=== PATIENT | male | born 1970 | race African-American/Black ===

== ENCOUNTER 2017-10-24 10:39 | Emergency (ER) | payer SELFPAY ==
[2017-10-24 10:43] VITALS: BP 161/98; BMI 26.9
--- NOTE | 2017-10-24 11:19 | DR.GENAD ---
HPI - PCP Primary Care Physician: NFD - Complaint/Symptoms Chief Complaint Doctors Comments: Five days ago patient states that he was cooking and spilled hot grease onto himself sustaining burn to the left neck, anterior lateral upper chest wall and shoulder to include the arm and forearm. Today he decided to get it checked. He does have weeping blisters noted as well as denuded blister formation Chief Complaint:: PATIENT WAS TAKING GREASE OFF THE STOVE AND IT SPLASHED HIM ON SUNDAY. PATIENT HAS LONG TO HIS NECK AND LEFT SHOULDER. PATIENT STATED THAT HE THOUGHT HE COULD TAKE CARE OF IT AT HOME. - Source History Provided: Patient - Mode of Arrival Mode of Arrival: Ambulatory - Timing Onset of Chief Complaint: 10/19/17 PMH - PMH Past Medical History: No Past Surgical History: No - Family History History of Family Medical Conditions: No - Social History Does patient currently use any type of tobacco product: No Have you used tobacco products in the last 12 months: No Type of Tobacco Use: None Does any household member use tobacco: No Alcohol Use: Occasionally Do you use any recreational Drugs:: No Lives With: Family Lives Where: Home - infectious screening In the last 2 months have you had wt loss of >10#?: NO Have you had fever, night sweats or hemotysis?: No Have you traveled outside the country in the last 6 months?: No Isolation: Standard ROS - Review of Systems Eyes: No Symptoms Reported ENTM: No Symptoms Reported Respiratoy: No Symptoms Reported Cardiovascular: No Symptoms Reported Gastrointestinal/Abdominal: No Symptoms Reported Genitourinary: No Symptoms Reported Neurological: No Symptoms Reported Musculoskeletal: No Symptoms Reported Integumentary: Other (a five day old burn on left lateral neck,shoulder and upper extremity, left anterior lateral upper chest and forearm. Skin denuded with area of erythema left anterior forearm) PE - Vital Signs Vitals: Temperature 97.6 F Pulse Rate 99 Respiratory Rate 20 Blood Pressure 161/98 O2 Sat by Pulse Oximetry 98 - General Limitations: No Limitations General Appearance: Alert, In No Apparent Distress - Head Head Exam: Normal Inspection, Atraumatic - Eyes Eye exam: Normal Appearance, PERRL, EOMI - ENT ENT Exam: Normal Exam External Ear Exam: Normal External Inspection TM/Canal Exam: Bilateral Normal Nose Exam: Normal Nose Exam, Sinus Tenderness Mouth Exam: Normal Inspection Throat Exam: Normal Inspection, Tonsillar Erythema - Neck Neck Exam: Normal Inspection, Full ROM - Chest Chest Inspection: Normal Inspection - Respiratory Respiratory Exam: Normal Lung Sounds Bilat Respiratory Exam: Bilateral Clear to Auscultation - Cardiovascular Cardiovascular Exam: Regular Rate, Normal Rhythm - Abdominal Exam Abdominal Exam: Normal Inspection, Normal Bowel Sounds Abdominal Tenderness: negative: RUQ, RLQ, LUQ, LLQ, Epigastrium, Suprapubic, Diffuse, Mild, Moderate, Severe, Other - Extremities Extremities Exam: Normal Inspection - Back Back Exam: Normal Inspection - Neurologic Neurological Exam: Alert, Oriented X3, CN II-XII Intact - Psychiatric Psychiatric Exam: Normal Affect - Skin Skin Exam: Warm, Other (3rd degree burn on left lateral neck, shoulder anterior lateral chest, upper lateral chest and left upper arm. A mixture of blister) Course - Treatment Treatment: Debrided loose skin and covered with silvadene and applied guaze - Reevaluation 1st: Improved - Diagnosis Discharge Problem: Third degree burn - Discharge Plan Condition: Stable - Follow ups/Referrals Follow ups/Referrals: NFD,None [Primary Care Provider] - 3 days - Instructions
== END 2017-10-24 11:45 | disposition home or self-care (01) ==
LOC: ER 10:55
PROC: 2W22X4Z Dressing of Neck using Bandage (ICD-10-PCS; principal; 2017-10-24)
PROC: 2W24X4Z Dressing of Chest Wall using Bandage (ICD-10-PCS; principal; 2017-10-24)
PROC: 2W29X4Z Dressing of Left Upper Extremity using Bandage (ICD-10-PCS; principal; 2017-10-24)
DX: T20.37XA Burn of third degree of neck, initial encounter (principal); T22.30XA Burn of third degree of shoulder and upper limb, except wrist and hand, unspecified site, initial encounter; T21.31XA Burn of third degree of chest wall, initial encounter; X12.XXXA Contact with other hot fluids, initial encounter
CPT/HCPCS: 16020; 99282